=== PATIENT | female | born 1995 | race Caucasian/White ===

== ENCOUNTER 2020-03-27 15:16 | Emergency (ER) | payer OTHER ==
[~2020-03-27] VITALS: Ht 157.5 cm; Wt 72.3 kg
[2020-03-27 15:38] VITALS: BP 139/63
--- NOTE | 2020-03-27 15:49 | NUR ---
PATIENT AMBULATED WITH STEADY GAIT TO BED 6.
--- NOTE | 2020-03-27 15:50 | NUR ---
PT AMB TO BED 6
--- NOTE | 2020-03-27 16:38 | NUR ---
C/O NAUSEA, VAGINAL BLEEDING , DIZZINESS X TODAY. PREG 7 WEEKS. LMP 01/27/20. A1 LO.PT AOX4 , AFIBRILE , AMBULATORY WITH STEADY GAIT , PINK PALPEBRAL CONJUNCTIVA , ANICTERIC SCLERA , SCE , FLAT SOFT ABDOMEN . MED HX: DENIES
[2020-03-27 16:39] LABS: BASOPHILS # (AUTO) 0.1 K/uL (0.00-0.22); BASOPHILS % (AUTO) 0.5 % (0.0-2.0); EOSINOPHILS % (AUTO) 0.1 % (0.0-4.0); HEMATOCRIT 38.5 % (36-48); HEMOGLOBIN 12.7 g/dL (12.0-16.0); LYMPHOCYTES # (AUTO) 1.3 K/uL (2.5-16.5); LYMPHOCYTES % (AUTO) 9.7 % (20.5-51.1); MEAN CORPUSCULAR HEMOGLOBIN 28 pg (27-31); MEAN CORPUSCULAR HGB CONC 33 g/dL (33-37); MEAN CORPUSCULAR VOLUME 84.5 fL (80-94); MONOCYTES # (AUTO) 0.6 K/uL (0.8-1.0); MONOCYTES % (AUTO) 4.4 % (1.7-9.3); NEUTROPHILS # (AUTO) 11.5 K/uL (1.8-7.7); NEUTROPHILS % (AUTO) 85.3 % (42.2-75.2); PLATELET COUNT (AUTO) 272 K/uL (140-450); RED BLOOD CELL COUNT(AUTO) 4.56 MIL/uL (4.20-5.40); RED CELL DISTRIBUTION WIDTH 13.7 % (11.6-13.7); WHITE BLOOD COUNT (AUTO) 13.5 K/uL (4.8-10.8)
[2020-03-27 16:53] LABS: ANION GAP 14.1 (8-16); CARBON DIOXIDE 23.7 mmol/L (21-32); CREATININE 0.6 mg/dL (0.6-1.3); POTASSIUM 3.8 mmol/L (3.5-5.1); TOTAL BILIRUBIN 0.4 mg/dL (0.0-1.0)
[2020-03-27 16:58] LABS: APPEARANCE,URINE CLEAR (CLEAR); BILIRUBIN,URINE NEGATIVE (NEGATIVE); BLOOD, URINE 2+ (NEGATIVE); COLOR,URINE DARK YELLOW (YELLOW); LEUKOCYTE ESTERASE ,URINE TRACE (NEGATIVE); NITRITE, URINE NEGATIVE (NEGATIVE); PH,URINE 7.5 (5.0-9.0); UGLUCOSE NEGATIVE (NEGATIVE)
--- NOTE | 2020-03-27 17:38 | NUR ---
US AT BEDSIDE.
--- NOTE | 2020-03-27 18:59 | NUR ---
dr rios at bedside reevaluating pt.
[2020-03-27 19:10] VITALS: BP 133/88
--- NOTE | 2020-03-27 19:12 | NUR ---
Patient discharged with v/s stable. Written and verbal after care instructions given and explained regarding asymptomatic bacteriuria and threatened miscarriage. Patient alert, oriented and verbalized understanding of instructions. Ambulatory with steady gait. All questions addressed prior to discharge. ID band removed. Patient advised to follow up with PMD. Rx of keflex given. Patient educated on indication of medication including possible reaction and side effects. Opportunity to ask questions provided and answered.
== END 2020-03-27 19:12 | disposition home or self-care (01) ==
LOC: MED 15:16
DX: O20.8 Other hemorrhage in early pregnancy (principal); O46.8X1 Other antepartum hemorrhage, first trimester
CPT/HCPCS: 36415; 76802; 80053; 81001; 84702; 85025; 86900; 86901; 87086; 99284; Q0092; 99285